=== PATIENT | male | born 1945 | race Caucasian/White ===

== ENCOUNTER → 2025-03-09 | Outpatient (CLI) | payer MEDICARE ==
--- NOTE | 2025-03-09 15:37 | US ---
EXAMINATION TYPE: US kidneys/renal and bladder DATE OF EXAM: 03/09/2025 COMPARISON: NONE CLINICAL INDICATION: Male, 79 years old with history of R31.9 HEMATURIA, UNSPECIFIED; Painless hematu basim TECHNIQUE: Grayscale imaging of the bilateral kidneys and urinary bladder: FINDINGS: EXAM MEASUREMENTS: Right Kidney: 11.6 x 5.2 x 4.7 cm Left Kidney: 11.5 x 4.9 x 6.0 cm Right Kidney: Hyperechoic focus seen with posterior shadowing at upper-mid: 0.8 x 0.8 x 0.6 cm. *Anechoic area seen laterally: 2.0 x 2.3 x 2.0 cm. Left Kidney: Cluster of complex areas seen: 5.7 x 2.0 x 2.0 cm. *Hyperechoic focus seen at upper pole: 0.6 x 0.7 x 0.4 cm. Bladder: Bladder wall appears irregular with multiple anechoic areas, largest measures: 1.8 x 2.7 x 1.5 cm. -?Probable diverticulum. Bilateral Jets seen: Yes IMPRESSION: 1. Bilateral nonobstructing renal stones. 2. Irregular urinary bladder wall. Consider diverticulitis. Additional evaluation is recommended. [facility], , 03/09/2025 3:34 PM
== END | disposition home or self-care (01) ==
LOC: RADUSWWP 14:35
PROVIDERS: ATTEND Family Medicine
DX: N20.0 Calculus of kidney (principal); N32.89 Other specified disorders of bladder; R31.9 Hematuria, unspecified
CPT/HCPCS: 76770